=== PATIENT | male | born 1945 | race Caucasian/White ===

== ENCOUNTER 2017-04-25 14:19 | Emergency (ER) | payer MEDICARE, BC ==
[2017-04-25 14:34] VITALS: RESP 24; TEMP 98.7
[2017-04-25 15:20] LABS: BASOPHILS % (AUTO) 1 % (0-3); EOSINOPHILS % (AUTO) 3 % (0-9); HEMATOCRIT 33 % (39-53); MEAN CORPUSCULAR HGB CONC 33.9 gm/dl (32.0-36.0); MEAN CORPUSCULAR VOLUME 91 fL (80-100); NEUTROPHILS % (AUTO) 63.5 % (37-80)
[2017-04-25 16:29] VITALS: BP 90/53; PULSE 63; O2SAT 93
== END 2017-04-25 16:15 | disposition home or self-care (01) | DRG 603 ==
LOC: ED 14:19
DX: L03.116 Cellulitis of left lower limb (principal); S82.492D Other fracture of shaft of left fibula, subsequent encounter for closed fracture with routine healing
CPT/HCPCS: 36415; 73590; 85025; 99283; A6402; A6446

== ENCOUNTER 2017-07-29 20:37 | Emergency (ER) | payer MEDICARE, BC ==
[2017-07-29] MEDS ORDERED: PHYTONADIONE 1 MG/0.5 ML SOL IM ONE (21:09)
[2017-07-29] MEDS ORDERED: PHYTONADIONE 10 MG/ML SOL ONE (21:12)
[2017-07-29 21:19] VITALS: RESP 20
[2017-07-29 22:48] VITALS: BP 106/51; PULSE 69; O2SAT 90
== END 2017-07-29 21:51 | disposition home or self-care (01) | DRG 813 ==
LOC: ED 20:37
DX: D69.3 Immune thrombocytopenic purpura (principal); Z79.01 Long term (current) use of anticoagulants
CPT/HCPCS: 99283; J3430

== ENCOUNTER 2019-05-25 11:17 | Emergency (ER) | payer MEDICARE, BC ==
[2019-05-25] MEDS ORDERED: ASPIRIN 81 MG CHEWABLE CTB PO ONE (11:24)
[2019-05-25] MEDS ORDERED: NITROGLYCERIN 0.4 MG TAB SL PRN (11:25)
[2019-05-25 11:31] LABS: BASOPHILS % (AUTO) 0 % (0-3); EOSINOPHILS % (AUTO) 0 % (0-9); HEMATOCRIT 41 % (39-53); HEMOGLOBIN 13.3 gm/dl (13.5-17.7); MEAN CORPUSCULAR HEMOGLOBIN 29.8 pg (27.0-32.0); MEAN CORPUSCULAR HGB CONC 32.6 gm/dl (32.0-36.0); MEAN CORPUSCULAR VOLUME 91 fL (80-100); MONOCYTES % (AUTO) 4.6 % (0-12); NEUTROPHILS % (AUTO) 89.1 % (37-80)
[2019-05-25 11:40] VITALS: TEMP 97.6
[2019-05-25 11:42] LABS: INR 1.35 (0.86-1.12)
[2019-05-25 11:54] LABS: ALBUMIN 2.9 gm/dl (3.4-5.0); ALKALINE PHOSPHATASE 74 IU/L (46-116); ALT 32 IU/L (14-63); AST 42 IU/L (15-37); BLOOD UREA NITROGEN 33 mg/dl (7-18); CALCIUM 8.2 mg/dl (8.5-10.1); CARBON DIOXIDE 26.3 mEq/L (21-32); CHLORIDE 99 mMol/L (98-107); GLUCOSE 138 mg/dl (74-106); POTASSIUM 3.8 mMol/L (3.5-5.1); SODIUM 135 mMol/L (136-145); TOTAL PROTEIN 6.6 gm/dl (6.4-8.2); TROP I < 0.017 ng/ml (0.000-0.056)
[2019-05-25] MEDS: SODIUM CHLORIDE 0.9% 1000ML 1,000 ML IV ONE ×4 (12:18→15:00)
[2019-05-25] MEDS ORDERED: ASPIRIN 81 MG CHEWABLE CTB ONE (12:21)
[2019-05-25] MEDS ORDERED: ONDANSETRON HCL 4 MG/2 ML SOL IV ONE (13:15)
[2019-05-25] MEDS ORDERED: HYDROMORPHONE 1 MG/ML SYRINGE IV PRN (13:18)
[2019-05-25] MEDS ORDERED: MORPHINE SULFATE 10 MG/ML SOL IV ONE (13:19)
[2019-05-25] MEDS ORDERED: ONDANSETRON HCL 4 MG/2 ML SOL ONE (13:33)
[2019-05-25] MEDS ORDERED: HYDROMORPHONE 1 MG/ML SYRINGE ONE (13:33)
[2019-05-25] MEDS ORDERED: PANTOPRAZOLE SODIUM 40 MG/10 ML PDS IV ONE (15:10)
[2019-05-25] MEDS ORDERED: ACETAMINOPHEN 500 MG 500 MG TAB PO ONE (15:14)
[2019-05-25] MEDS ORDERED: ACETAMINOPHEN 500 MG 500 MG TAB ONE (15:18)
[2019-05-25] MEDS ORDERED: PANTOPRAZOLE SODIUM 40 MG/10 ML PDS ONE (15:18)
[2019-05-25] MEDS ORDERED: ALBUTEROL/IPRATROPIUM 1 VIAL SOL INH ONE (15:25)
[2019-05-25] MEDS ORDERED: ALBUTEROL/IPRATROPIUM 1 VIAL SOL ONE (15:26)
[2019-05-25 16:19] LABS: LACTIC ACID 1.1 mMol/L (0.0-2.0)
[2019-05-25 16:35] LABS: TROP I 0.022 ng/ml (0.000-0.056)
[2019-05-25 16:37] LABS: APPEARANCE,URINE Clear; BILIRUBIN,URINE NEGATIVE (NEGATIVE); COLOR,URINE Dark yellow; GLUCOSE, URINE (UA) NEGATIVE (NEGATIVE); KETONES,URINE NEGATIVE (NEGATIVE); LEUKOCYTE ESTERASE ,URINE NEGATIVE (NEGATIVE); NITRATE,URINE NEGATIVE (NEGATIVE); OCCULT BLOOD,URINE 2+ (NEG-TRACE); UROBILINOGEN,URINE 0.2 (0.2-1.0 EU)
[2019-05-25 16:43] LABS: BACTERIA 1+ (< 1+); BARBITUATES NEGATIVE (NEGATIVE); BENZODIAZEPINES POSITIVE (NEGATIVE); CRYSTALS NEGATIVE (0-3 AVE/HPF)
[2019-05-25 16:44] LABS: AMPHETAMINES NEGATIVE (NEGATIVE); CANNABINOL(THC) NEGATIVE (NEGATIVE); COCAINE(COC) NEGATIVE (NEGATIVE); METHAMPHETAMINES NEGATIVE (NEGATIVE); OPIATES(OPI) POSITIVE (NEGATIVE); OXYCODONE(OXY) POSITIVE (NEGATIVE); PROPOXYPHENE(PPX) NEGATIVE (NEGATIVE)
[2019-05-25 16:48] VITALS: PULSE 71; RESP 16
[2019-05-25 16:52] VITALS: BP 116/51; O2SAT 94
== END 2019-05-25 16:45 | disposition home or self-care (01) | DRG 392 ==
LOC: ED 11:17
DX: A08.4 Viral intestinal infection, unspecified (principal); R07.89 Other chest pain; E86.0 Dehydration; R11.2 Nausea with vomiting, unspecified; R31.9 Hematuria, unspecified; Z79.01 Long term (current) use of anticoagulants; R61 Generalized hyperhidrosis; R42 Dizziness and giddiness; R06.00 Dyspnea, unspecified; Z79.899 Other long term (current) drug therapy; E11.9 Type 2 diabetes mellitus without complications
CPT/HCPCS: 36415; 71045; 80053; 80305; 81001; 83605; 83880; 84484; 85025; 85610; 87040; 93005; 96365; 96366; 96374; 96375; 99284; 99291; J2405; J1170

== ENCOUNTER 2019-05-27 10:54 | Emergency (ER) | payer MEDICARE, BC ==
[2019-05-27 11:32] LABS: INR 1.86 (0.86-1.12)
[2019-05-27 11:33] LABS: BASOPHILS % (AUTO) 1 % (0-3); EOSINOPHILS % (AUTO) 3 % (0-9); HEMATOCRIT 35 % (39-53); HEMOGLOBIN 11.5 gm/dl (13.5-17.7); LYMPHOCYTES % (AUTO) 18.4 % (10-50); MEAN CORPUSCULAR HEMOGLOBIN 30.5 pg (27.0-32.0); MEAN CORPUSCULAR VOLUME 92 fL (80-100); MONOCYTES % (AUTO) 6.9 % (0-12); NEUTROPHILS % (AUTO) 70.9 % (37-80)
[2019-05-27 11:37] LABS: ALBUMIN 2.6 gm/dl (3.4-5.0); BILIRUBIN,TOTAL 0.5 mg/dl (0.2-1.0); CALCIUM 8.2 mg/dl (8.5-10.1); CARBON DIOXIDE 25.6 mEq/L (21-32); CREATININE 1.02 mg/dl (0.80-1.30); MAGNESIUM 1.8 mg/dl (1.8-2.4); POTASSIUM 4.1 mMol/L (3.5-5.1); TOTAL PROTEIN 6.4 gm/dl (6.4-8.2)
[2019-05-27 11:38] VITALS: RESP 18; TEMP 97.6
[2019-05-27 11:45] VITALS: PULSE 70
[2019-05-27] MEDS ORDERED: SODIUM CHLORIDE 0.9% 500 ML 500 ML IV ONE (12:02)
[2019-05-27 12:29] VITALS: O2SAT 97
[2019-05-27 12:49] VITALS: BP 115/52
[2019-05-27 13:57] LABS: APPEARANCE,URINE Slightly Cloudy; BILIRUBIN,URINE NEGATIVE (NEGATIVE); COLOR,URINE Dark yellow; GLUCOSE, URINE (UA) NEGATIVE (NEGATIVE); KETONES,URINE NEGATIVE (NEGATIVE); LEUKOCYTE ESTERASE ,URINE NEGATIVE (NEGATIVE); NITRATE,URINE NEGATIVE (NEGATIVE); OCCULT BLOOD,URINE 1+ (NEG-TRACE); PH,URINE 5.5; UROBILINOGEN,URINE 0.2 (0.2-1.0 EU)
[2019-05-27 14:10] LABS: BACTERIA NEGATIVE (< 1+); CRYSTALS NEGATIVE (0-3 AVE/HPF); EPITHELIAL CELLS 0-2 (SQUAMOUS); WBC,URINE 0-2 (0-5AV/HPF)
== END 2019-05-27 16:00 | disposition home or self-care (01) | DRG 69 ==
LOC: ED 10:54
DX: G45.9 Transient cerebral ischemic attack, unspecified (principal); R41.0 Disorientation, unspecified; R05 Cough; Z79.01 Long term (current) use of anticoagulants; R26.81 Unsteadiness on feet; R47.81 Slurred speech; H53.2 Diplopia; E11.9 Type 2 diabetes mellitus without complications; R29.702 NIHSS score 2
CPT/HCPCS: 70450; 70496; 70498; 80053; 81001; 82962; 83735; 85025; 85610; 93005; 96365; 99285; 99291; Q9967

== ENCOUNTER 2019-06-12 15:02 | Emergency (ER) | payer MEDICARE, BC ==
[2019-06-12 15:13] VITALS: PULSE 70; RESP 16; TEMP 95.5
[2019-06-12] MEDS ORDERED: APAP/OXYCODONE 1 EACH TABLET PO ONE (16:04)
[2019-06-12] MEDS ORDERED: ONDANSETRON HCL 4 MG TAB PO ONE (16:05)
[2019-06-12 16:17] LABS: BASOPHILS % (AUTO) 1 % (0-3); EOSINOPHILS % (AUTO) 1 % (0-9); HEMATOCRIT 37 % (39-53); HEMOGLOBIN 11.8 gm/dl (13.5-17.7); LYMPHOCYTES % (AUTO) 18.9 % (10-50); MEAN CORPUSCULAR HEMOGLOBIN 30.2 pg (27.0-32.0); MEAN CORPUSCULAR HGB CONC 31.8 gm/dl (32.0-36.0); MEAN CORPUSCULAR VOLUME 95 fL (80-100); MONOCYTES % (AUTO) 7.7 % (0-12); NEUTROPHILS % (AUTO) 71.9 % (37-80)
[2019-06-12 16:25] LABS: INR 1.1 (0.87-1.13)
[2019-06-12] MEDS ORDERED: ONDANSETRON 4 MG ODT ONE (16:33)
[2019-06-12 16:34] LABS: ALBUMIN 2.9 gm/dl (3.4-5.0); BILIRUBIN,TOTAL 0.5 mg/dl (0.2-1.0); CALCIUM 8.7 mg/dl (8.5-10.1); CARBON DIOXIDE 27.7 mEq/L (21-32); CREATININE 1.11 mg/dl (0.80-1.30); TOTAL PROTEIN 7.2 gm/dl (6.4-8.2); TROP I 0.022 ng/ml (0.000-0.056)
[2019-06-12] MEDS ORDERED: APAP/OXYCODONE 1 EACH TABLET ONE (16:35)
[2019-06-12 18:16] VITALS: BP 133/61; O2SAT 96
== END 2019-06-12 17:49 | disposition home or self-care (01) | DRG 392 ==
LOC: ED 15:02
DX: R19.7 Diarrhea, unspecified (principal); R42 Dizziness and giddiness; R06.02 Shortness of breath; R06.00 Dyspnea, unspecified; Z79.01 Long term (current) use of anticoagulants; E11.9 Type 2 diabetes mellitus without complications; T14.8XXA Other injury of unspecified body region, initial encounter
CPT/HCPCS: 36415; 71046; 80053; 83735; 83880; 84484; 85025; 85610; 93005; 99283; A9270-GY

== ENCOUNTER 2019-07-19 09:43 | Emergency (ER) | payer MEDICARE, BC | END 2019-07-19 11:45 | disposition home or self-care (01) | LOC: ED 09:43 ==

== ENCOUNTER 2019-07-26 13:31 | Emergency (ER) | payer MEDICARE, BC | END 2019-07-26 16:58 | disposition home or self-care (01) | LOC: ED 13:31 ==